=== PATIENT | female | born 1965 | race Two or more races ===

== ENCOUNTER 2018-09-16 22:00 | Emergency (ER) | payer OTHER ==
[~2018-09-16] VITALS: Ht 170.2 cm; Wt 65.8 kg
[2018-09-16] MEDS ORDERED: HYDROCODONE/APAP 5-325MG TABLET ONE (22:24)
[2018-09-16] MEDS ORDERED: HYDROCODONE/APAP 5-325MG TABLET PO ONE (22:30)
[2018-09-16] MEDS ORDERED: LORAZEPAM 2 MG/1 ML VIAL IV ONE (23:15)
[2018-09-16] MEDS ORDERED: KETOROLAC TROMETHAMINE 30 MG INJ IVP ONE (23:15)
[2018-09-16] MEDS ORDERED: KETOROLAC TROMETHAMINE 30 MG INJ ONE (23:24)
[2018-09-16] MEDS ORDERED: LORAZEPAM 2 MG/1 ML VIAL ONE (23:25)
[2018-09-17 01:16] VITALS: BP 144/90
== END 2018-09-17 01:18 | disposition home or self-care (01) ==
LOC: ER 22:03
DX: R51 Headache (principal); F43.20 Adjustment disorder, unspecified; J45.909 Unspecified asthma, uncomplicated
CPT/HCPCS: 70450; 96374; 96375; 99284; J1885; J2060; A4663